=== PATIENT | female | born 1940 | race Caucasian/White ===

== ENCOUNTER → 2016-05-08 | Outpatient (CLI) | payer MEDICARE, OTHER ==
[~2016-05-08] MED LIST: CARB1DRO12 OP; GENT3.5O18 OD; LOPE2CAP PO; MULT-963 PO
--- NOTE | 2016-05-09 13:35 | Diagnostic Imaging Report ---
INDICATION: Digital mammogram bilateral screening. This study was compared to the prior exams of 11/14/14, 09/12/13 and 03/26/12. At this time, there are no current complaints. The current study was also evaluated with a Computer Aided Detection (CAD) system. FINDINGS: There is a mild amount of fibroglandular tissue present in both breasts, similar to the prior exam. No primary or secondary sign of malignancy is noted. IMPRESSION: There is no radiographic evidence for malignancy. ACR BI-RADS Category 1: Negative Result letter will be mailed to the patient. Note: At least 10% of breast cancer is not imaged by mammography. Dictated by: Dictated on workstation # [id number]
== END ==
LOC: RAD 10:13
PROVIDERS: ATTEND Internal Medicine
DX: Z12.31 Encounter for screening mammogram for malignant neoplasm of breast (principal)

== ENCOUNTER → 2017-04-27 | Outpatient (CLI) | payer MEDICARE, OTHER ==
--- NOTE | 2017-04-27 15:50 | Diagnostic Imaging Report ---
INDICATION: Digital mammogram bilateral screening. This study was compared to the prior exams from 05/08/16 to 03/26/12. At this time, there are no current complaints. The current study was also evaluated with a Computer Aided Detection (CAD) system. FINDINGS: There are scattered fibroglandular densities in both breasts which could obscure a lesion. Overall, there does not appear to have been any significant change when compared to the prior exam. No primary or secondary sign of malignancy is noted. IMPRESSION: There is no radiographic evidence for malignancy. ACR BI-RADS Category 1: Negative. Result letter will be mailed to the patient. Note: At least 10% of breast cancer is not imaged by mammography. Dictated by: Dictated on workstation # [id number]
== END ==
LOC: RAD 11:08
PROVIDERS: ATTEND Internal Medicine
DX: Z12.31 Encounter for screening mammogram for malignant neoplasm of breast (principal)
CPT/HCPCS: 77067

== ENCOUNTER 2017-04-29 05:31 | Outpatient (CLI) | payer MEDICARE, OTHER ==
[~2017-04-29] VITALS: Ht 154.9 cm; Wt 50.5 kg
[2017-04-29] MEDS ORDERED: MULT-35 PO (11:04)
[2017-04-29] MEDS ORDERED: LOPE-134 PO (11:04)
== END 2017-04-29 11:08 ==
LOC: PREOP 05:31
PROVIDERS: ATTEND Surgery
DX: Z01.818 Encounter for other preprocedural examination (principal); Z12.11 Encounter for screening for malignant neoplasm of colon; R19.7 Diarrhea, unspecified; Z86.010 Personal history of colon polyps; Z80.0 Family history of malignant neoplasm of digestive organs

== ENCOUNTER 2017-05-06 10:33 | Day surgery (SDC) | payer MEDICARE, OTHER ==
[~2017-05-06] VITALS: Ht 154.9 cm; Wt 50.5 kg
[~2017-05-06 10:33] MED LIST changes: +LOPE-134 PO; +MULT-35 PO
--- NOTE | 2017-05-06 10:44 | Conscious Sedation/ASA ---
Conscious Sedation Pre-Proced Time Reviewed: 10:30 ASA Class: 3 Airway Mallampati Classification: (tetlin appropriate class) I. II. III, IV Lungs Heart ASA score ASA 1: a normal healthy patient ASA 2: a patient with a mild systemic disease (mid diabetes, controlled hypertension, obesity ASA 3: a patient with a severe systemic disease that limits activity (angina , COPD, prior Myocardial infarction) ASA 4: a patient with an incapacitating disease that is a constant threat to life (CHF, renal failure) ASA 5: a moribund patient not expected to survive 24 hrs. (ruptured aneurysm) ASA 6: a declared brain patient whose organs are being harvested. For emergent operations, add the letter E after the classification Grade 2 Sedation Plan: Analgesia, Amnesia, Plan communicated to team members, Discussed options with patient/fam, Discussed risks with patient/fam Note The patient is an appropriate candidate to undergo the planned procedure, sedation, and anesthesia. The patient immediately re-assessed prior to indication. DILLON ZHOU MD May 06, 2017 10:44 am
[2017-05-06] MEDS ORDERED: HYDROcodone/APAP 5 MG/325 MG (LORTAB) TAB PO PRN (10:45)
[2017-05-06] MEDS ORDERED: ONDANSETRON 4 MG/2 ML (SDV) Z0FRAN IV PRN (10:45)
[2017-05-06] MEDS ORDERED: morphine INJ 10 MG/ML 1ML (SYR OR VIAL) IV PRN (10:45)
[2017-05-06] MEDS ORDERED: ACETAMINOPHEN 325 MG TABLET/CAPLET (TYLENOL) PO PRN (10:45)
--- NOTE | 2017-05-06 10:45 | Progress Note-Pre Operative ---
Pre-Operative Progress Note H&P Reviewed The H&P was reviewed, patient examined and no changes noted. Date Seen by Provider: May 06, 2017 Time Seen by Provider: 10:40 Date H&P Reviewed: May 06, 2017 Time H&P Reviewed: 10:30 Pre-Operative Diagnosis: hx polyp, family hx colon ca DILLON ZHOU MD May 06, 2017 10:45 am
[2017-05-06 10:55] VITALS: BP_DIAS 142
[2017-05-06] MEDS ORDERED: NS IV 500 ML 500 ML IV PRN (10:55)
[2017-05-06] MEDS ORDERED: LIDOCAINE JELLY 2% (XYLOCAINE) 5 ML TUBE MM PRN (11:00)
[2017-05-06] MEDS ORDERED: LIDOCAINE JELLY 2% (XYLOCAINE) 5 ML TUBE ONE (11:30)
[2017-05-06] MEDS ORDERED: fentaNYL INJECTION 100 MCG/2 ML AMP ONE ×2 (11:31)
[2017-05-06] MEDS ORDERED: MIDAZOLAM 2 MG/2 ML (VERSED) VIAL ONE ×3 (11:31)
--- NOTE | 2017-05-06 11:32 | Discharge Inst-Surgical ---
D/C Lap Instructions-ABELARDO Follow Up 2 years Activity as tolerated High Fiber Diet 25g or more per day Avoid Alcohol, Caffeine, Spicy [place] and Acid foods. Drink 64 fluid oz or more of fluids per day. Symptoms to Report: Fever over 101 degree F, Nausea/Vomiting If any problems/questions: Contact your physician or go to Emergency Room DILLON ZHOU MD May 06, 2017 11:32 am
[2017-05-06] MEDS: fentaNYL INJECTION 100 MCG/2 ML AMP IVP PRN ×4 (11:40→12:05)
[2017-05-06] MEDS: MIDAZOLAM 2 MG/2 ML (VERSED) VIAL IVP PRN ×3 (11:48→11:55)
[2017-05-06 14:37] VITALS: BP 138/70
[2017-05-06 14:40] VITALS: BP 138/70
--- NOTE | 2017-05-06 18:34 | OPERATIVE REPORT ---
DATE OF SERVICE: 05/06/2017 PREOPERATIVE DIAGNOSES: History of polyps, family history of colon cancer, personal history of ovarian cancer. POSTOPERATIVE DIAGNOSES: Chronic stage I external and internal hemorrhoids, chronic radiation proctitis, mild sigmoid diverticulosis. PROCEDURE: Colonoscopy. SURGEON: Dillon Zhou M.D. ANESTHESIA: Conscious sedation. ESTIMATED BLOOD LOSS: Minimal. FINDINGS: Chronic stage I external and internal hemorrhoids, not actively edematous nor inflamed and no bleeding. A chronic changes within the rectal mucosa consistent with a chronic radiation proctitis with no active bleeding or ulceration. Mild isolated sigmoid diverticulosis with no inflammatory changes. No polyps identified. DISPOSITION: The patient tolerated the procedure well. INDICATIONS: The patient is a 76-year-old female with history of chronic radiation proctitis, which caused her to have significant diarrhea for which she states is for approximately 1 year. This was around 2015 and she was seen at [facility] and underwent a colonoscopy at that time were polyps were identified, biopsied and found to be benign. She states that over time in [place] taking her diarrhea did improve over time. She does not report any episodes of rectal bleeding or dark tarry stools. She has a history of ovarian cancer diagnosed in 1969 and underwent hysterectomy as well as radiation therapy. DESCRIPTION OF PROCEDURE: The patient was brought to the operating room, laid supine on the table. After adequate IV pain and sedative medications and conscious sedation anesthesia, a digital rectal examination was performed. Mild chronic stage I external and internal hemorrhoids were identified, which were not actively edematous nor inflamed and no bleeding. The anus appeared to be somewhat stenotic; however, patent under digital rectal examination. There were no palpable masses. The endoscope was then intubated to the anus and rectum and gently insufflated. The endoscope was then advanced to the valves of Todd of the rectum with a slightly pale appearing rectal mucosa as well as a small amount of mucous material consistent with a chronic radiation proctitis with no bleeding or ulcerations identified. The endoscope was then advanced to the sigmoid colon, where a few small isolated diverticulosis identified. There were no mucosal inflammatory change to indicate any diverticulitis. The endoscope was then advanced to the remainder of the descending, transverse and ascending colon to the cecum, which appeared normal with no polyps or any neoplasms identified. The endoscope was then slowly withdrawn while taking a second look and suctioning residual air with no additional findings. The patient tolerated the procedure well. Our recommendations is that she continue with medical management with a high fiber diet with at least 25 grams of fiber per day as well as at least 64 fluid ounces of water daily to promote soft stools on a daily basis. Due to her high risk with her family history as well as personal history of ovarian cancer, it was recommended that she proceed with followup colonoscopy approximately every 2 years by [facility] and we will have her follow up. Job ID: [id number] DocumentID: [id number] Dictated Date: 05/06/2017 17:55:12 Print Production Coordinator Date: 05/06/2017 18:33:29 Dictated By: DILLON ZHOU MD
== END 2017-05-06 14:00 | disposition home or self-care (01) ==
LOC: ENDO 10:33
PROVIDERS: ATTEND Surgery
DX: K62.7 Radiation proctitis (principal); K64.0 First degree hemorrhoids; K57.30 Diverticulosis of large intestine without perforation or abscess without bleeding; Z86.010 Personal history of colon polyps; Z80.0 Family history of malignant neoplasm of digestive organs; Z85.43 Personal history of malignant neoplasm of ovary; E78.00 Pure hypercholesterolemia, unspecified; M85.80 Other specified disorders of bone density and structure, unspecified site; Z79.899 Other long term (current) drug therapy

== ENCOUNTER → 2017-08-06 | Outpatient (CLI) | payer MEDICARE, OTHER ==
--- NOTE | 2017-08-06 15:46 | Diagnostic Imaging Report ---
PROCEDURE: CT head without contrast. TECHNIQUE: Multiple contiguous axial images were obtained through the brain without the use of intravenous contrast. INDICATION: Syncope and fall. COMPARISON: No prior studies are available for comparison. FINDINGS: The ventricles and sulci are appropriate for the patient's age. No sulcal effacement is identified. There is no midline shift. No acute intra-axial or extra-axial hemorrhage is detected. Cisterns are patent. The visualized paranasal sinuses are clear. IMPRESSION: No acute intracranial process is detected. Dictated by: Dictated on workstation # [id number]
== END ==
LOC: RAD 15:18
PROVIDERS: ATTEND Nurse Practitioner
DX: R55 Syncope and collapse (principal); W22.8XXA Striking against or struck by other objects, initial encounter
CPT/HCPCS: 70450

== ENCOUNTER → 2019-05-12 | Outpatient (CLI) | payer MEDICARE, OTHER ==
--- NOTE | 2019-05-12 11:58 | Diagnostic Imaging Report ---
INDICATION: Left breast pain. Correlation is made with diagnostic mammogram earlier the same day. FINDINGS: Sonographic interrogation of the area of pain in the upper left breast was performed. No sonographic abnormality is identified. No solid or cystic mass is detected. IMPRESSION: No sonographic abnormality is detected. ACR BI-RADS Category 1: Negative. Dictated by: Dictated on workstation # [id number]
--- NOTE | 2019-05-12 11:58 | Diagnostic Imaging Report ---
INDICATION: Left breast pain. Correlation is made with prior mammograms from 04/27/2017 and 05/08/2016. 2-D and 3-D bilateral diagnostic mammography was performed. The current study was also evaluated with a Computer Aided Detection (CAD) system. 3-D tomosynthesis was also performed and reviewed. FINDINGS: Scattered fibroglandular densities are identified bilaterally. A BB marker was placed at the area of pain in the upper left breast. No underlying abnormality is seen. No mass or malignant-appearing microcalcifications are seen. The axillae are unremarkable. IMPRESSION: No mammographic features suspicious for malignancy are identified. Even so, directed sonographic interrogation of the area of pain in the left breast is recommended and will be performed today. ACR BI-RADS Category 0: Incomplete. (Needs additional imaging evaluation). Result letter will be mailed to the patient. Note: At least 10% of breast cancer is not imaged by mammography. Dictated by: Dictated on workstation # [id number]
== END ==
LOC: RAD 08:59
PROVIDERS: ATTEND Internal Medicine
DX: N64.4 Mastodynia (principal)
CPT/HCPCS: 76642; 77066

== ENCOUNTER → 2019-05-31 | Outpatient (CLI) | payer MEDICARE, OTHER ==
--- NOTE | 2019-05-31 11:36 | Diagnostic Imaging Report ---
INDICATION: Postmenopausal screening for osteoporosis. COMPARISON: 03/26/2012. FINDINGS: AP Spine L1-L4: [BMD (g/cm2): 0.845] [T-Score: -3.0] [Z-Score: -0.6] [BMD Previous: 0.964] [BMD % Change: -12.3] LT Hip Neck: [BMD (g/cm2): 0.813] [T-Score: -1.6] [Z-Score: 0.8] LT Hip Total: [BMD (g/cm2):0.821] [T-Score:-1.5] [Z-Score: 0.8] [BMD Previous: 0.886] [BMD % Change: -7.3] RT Hip Neck: [BMD (g/cm2):0.761] [T-Score:-2.0] [Z-Score:0.4] RT Hip Total: [BMD (g/cm2):0.807] [T-score:-1.6] [Z-Score:0.7] [BMD Previous:0.860] [BMD % Change:-6.2] *Indicates significant change from prior examination based on 95% confidence level. World Health Organization criteria for BMD interpretation classify patients as Normal (T-score at or above -1.0), Osteopenic (T-score between -1.0 and -2.5) or Osteoporotic (T-score at or below -2.5). LIMITATIONS AND MODIFICATION: None. FRACTURE RISK (FRAX SCORE): The ten year probability of (%): Major Osteoporotic Fracture: [13.3] Hip Fracture: [4.0] IMPRESSION: 1. Osteopenia (Low bone mass). 2. No significant change in bone mineral density since prior examination. 3. See below National Osteoporosis Foundation guidelines on when to potentially initiate pharmacologic therapy. Based on the National Osteoporosis Foundation Guidelines, pharmacologic treatment should be initiated in any of the following, unless clinical conditions suggest otherwise: * Any patient with prior fragility fracture of the hip or vertebrae. A spine fracture indicates 5X risk for subsequent spine fracture and 2X risk for subsequent hip fracture. * Osteoporosis (T-score <-2.5). * Postmenopausal women and men age 50 and older with low bone mass/osteopenia (T-score between -1.0 and -2.5) by DXA and 10-year major osteoporotic fracture greater than 20% or a 10-year probability of hip fracture greater than 3%. These fracture risks are supplied above in the FRAX score, if applicable. * Clinician judgement and/or patient preferences may indicate treatment for people with 10-year fracture probabilities above or below these levels. Dictated by: Dictated on workstation # [id number]
== END ==
LOC: RAD 10:07
PROVIDERS: ATTEND Internal Medicine
DX: M85.80 Other specified disorders of bone density and structure, unspecified site (principal); Z78.0 Asymptomatic menopausal state
CPT/HCPCS: 77080

== ENCOUNTER 2020-01-20 18:44 | Emergency (ER) | payer MEDICARE, OTHER ==
--- NOTE | 2020-01-20 19:01 | NUR ---
Went to call pt to back. Registration stated pt's son entered waiting room and was yelling at pt that there are too many sick people here and made pt leave.
== END 2020-01-20 19:08 | disposition left against medical advice (07) ==
LOC: EDUNIT# 18:44 → ER 18:46
DX: R33.9 Retention of urine, unspecified (principal)

== ENCOUNTER 2020-02-08 10:48 | Outpatient (RCR) | payer MEDICARE, OTHER | END 2020-02-08 11:27 | disposition home or self-care (01) | PROVIDERS: ATTEND Physician Assistant | DX: R35.0 Frequency of micturition (principal); R35.1 Nocturia ==

== ENCOUNTER → 2020-09-05 | Outpatient (CLI) | payer MEDICARE, OTHER ==
--- NOTE | 2020-09-05 13:52 | Diagnostic Imaging Report ---
INDICATION: Routine screening. COMPARISON: 05/12/2019 and 04/27/2017. TECHNIQUE: 2D and 3D bilateral screening mammography was performed with CAD. FINDINGS: Scattered fibroglandular densities are identified bilaterally. No mass or malignant appearing microcalcifications are seen. The axillae are unremarkable. IMPRESSION: No mammographic features suspicious for malignancy are identified. ACR BI-RADS Category 1: Negative. Result letter will be mailed to the patient. Note: At least 10% of breast cancer is not imaged by mammography. Dictated by: Dictated on workstation # [id number]
== END ==
LOC: RAD 09:57
PROVIDERS: ATTEND Internal Medicine
DX: Z12.31 Encounter for screening mammogram for malignant neoplasm of breast (principal)
CPT/HCPCS: 77063; 77067

== ENCOUNTER 2020-09-12 11:52 | Outpatient (CLI) | payer MEDICARE, OTHER ==
[~2020-09-12] VITALS: Ht 154.9 cm; Wt 49.9 kg
[2020-09-12] MEDS ORDERED: TURM500C4 PO (15:53)
[2020-09-12] MEDS ORDERED: MULT-593 PO (15:53)
[2020-09-12] MEDS ORDERED: ERGO50006 PO (15:53)
[2020-09-12] MEDS ORDERED: GLUC-182 PO (15:53)
== END 2020-09-13 08:44 | disposition home or self-care (01) ==
LOC: PREOP 11:52
PROVIDERS: ATTEND Surgery
DX: Z01.818 Encounter for other preprocedural examination (principal)

== ENCOUNTER 2020-09-19 11:11 | Day surgery (SDC) | payer MEDICARE, OTHER ==
[2020-09-19] VITALS (29 sets, daily range): BP systolic 99–161; BP diastolic 55–83
[~2020-09-19] VITALS: Ht 154.9 cm; Wt 49.9 kg
[~2020-09-19 11:11] MED LIST changes: +ERGO50006 PO; +GLUC-182 PO; +MULT-593 PO; +NS IV 500 ML 500 ML ONE; +TURM500C4 PO
[2020-09-19] MEDS ORDERED: fentaNYL INJ 100 MCG/2 ML AMP IVP ONE (11:15)
[2020-09-19] MEDS ORDERED: MIDAZOLAM 5 MG/5 ML (VERSED) VIAL IV ONE (11:15)
[2020-09-19] MEDS ORDERED: LIDOCAINE JELLY 2% 6 ML SYRINGE MM PRN (11:15)
[2020-09-19] MEDS ORDERED: NS IV 500 ML 500 ML IV PRN (11:15)
[2020-09-19] MEDS ORDERED: MIDAZOLAM 5 MG/5 ML (VERSED) VIAL ONE ×2 (11:39)
[2020-09-19] MEDS ORDERED: LIDOCAINE JELLY 2% 6 ML SYRINGE ONE (11:39)
[2020-09-19] MEDS ORDERED: fentaNYL INJ 100 MCG/2 ML AMP ONE ×2 (11:39→11:40)
--- NOTE | 2020-09-19 11:43 | Conscious Sedation/ASA ---
Conscious Sedation Pre-Proced Time 11:30 ASA Score 2 For ASA 3 and 4: Consider anesthesia and medical clearance. Also, for patients with a history of failed moderate sedation consider anesthesia. Airway Lungs Heart ASA score ASA 1: a normal healthy patient ASA 2: a patient with a mild systemic disease (mid diabetes, controlled hypertension, obesity ASA 3: a patient with a severe systemic disease that limits activity (angina, COPD, prior Myocardial infarction) ASA 4: a patient with an incapacitating disease that is a constant threat to life (CHF, renal failure) ASA 5: a moribund patient not expected to survive 24 hrs. (ruptured aneurysm) ASA 6: a declared brain- patient whose organs are being harvested. For emergent operations, add the letter E after the classification Mallampati Classification Grade 2 Sedation Plan Analgesia, Amnesia, Plan communicated to team members, Discussed options with patient/fam, Discussed risks with patient/fam The patient is an appropriate candidate to undergo the planned procedure, sedation, and anesthesia. The patient immediately re-assessed prior to indication. DILLON ZHOU MD Sep 19, 2020 11:43
--- NOTE | 2020-09-19 11:44 | Progress Note-Pre Operative ---
Pre-Operative Progress Note H&P Reviewed The H&P was reviewed, patient examined and no changes noted. Date Seen by Provider: Sep 19, 2020 Time Seen by Provider: 11:30 Date H&P Reviewed: Sep 19, 2020 Time H&P Reviewed: 11:30 Pre-Operative Diagnosis: hx polyp, family hx colon ca DILLON ZHOU MD Sep 19, 2020 11:44
[2020-09-19] MEDS ORDERED: HYDROcodone/APAP 5 MG/325 MG (LORTAB) TAB PO PRN (11:45)
[2020-09-19] MEDS ORDERED: morphine INJ 10 MG/ML 1ML (SYR OR VIAL) IVP PRN ×2 (11:45)
[2020-09-19] MEDS ORDERED: ACETAMINOPHEN 325 MG TABLET PO PRN (11:45)
[2020-09-19] MEDS ORDERED: ONDANSETRON 4 MG/2 ML (SDV) Z0FRAN IVP PRN (11:45)
--- NOTE | 2020-09-19 11:45 | Discharge Inst-Surgical ---
D/C Lap Instructions-ABELARDO Follow Up Appt in 2 weeks Activity as tolerated High Fiber Diet 25g or more per day Avoid Alcohol, Caffeine, Spicy [place] and Acid foods. Drink 64 fluid oz or more of fluids per day. Symptoms to Report: Fever over 101 degree F, Nausea/Vomiting If any problems/questions: Contact your physician or go to Emergency Room DILLON ZHOU MD Sep 19, 2020 11:45
--- NOTE | 2020-09-19 13:42 | Progress Note-Post Operative ---
Post-Operative Progess Note Surgeon (s)/Machine Shop Lead Man (s) Surgeon DILLON ZHOU MD Machine Shop Lead Man: none Pre-Operative Diagnosis hx polyp, family hx colon ca Post-Operative Diagnosis anal stenosis, chronic radiation proctitis, moderate sigmoid diverticulosis, sigmoid polyp(3mm). Procedure & Operative Findings Date of Procedure 09/19/20 Procedure Performed/Findings colonoscopy with snare polypectomy. Anesthesia Type cs Estimated Blood Loss Estimated blood loss (mL): minimal Specimens/Packing Specimens Removed sigmoid polyp DILLON ZHOU MD Sep 19, 2020 13:42
--- NOTE | 2020-09-19 19:30 | OPERATIVE REPORT ---
DATE OF SERVICE: 09/19/2020 ATTENDING PRIMARY CARE PHYSICIAN: Dr. Diogo Nagel. PREOPERATIVE DIAGNOSIS: Screening colonoscopy with a history of colon polyps as well as a family history of colon cancer. POSTOPERATIVE DIAGNOSES: Mild to moderate anal stenosis, chronic radiation proctitis, moderate sigmoid diverticulosis, sigmoid colon polyp approximately 3 mm in size. PROCEDURE: Colonoscopy with snare polypectomy. SURGEON: Dillon Zhou MD. ANESTHESIA: Conscious sedation. ESTIMATED BLOOD LOSS: Minimal. FINDINGS: Mild to moderate anal stenosis, chronic radiation proctitis, moderate sigmoid diverticulosis, sigmoid colon polyp approximately 3 mm in size. DISPOSITION: The patient tolerated the procedure well. INDICATIONS: The patient is a 79-year-old female known to us. We had done a colonoscopy on her in 2012 and found to have sigmoid diverticulosis as well as a polyp of the sigmoid colon, which was removed and found to be a benign tubular adenoma. She also does have a history of cervical cancer and underwent a complete hysterectomy in 1973 and this was followed by radiation treatment. She also does have a family history of colon cancer with her father being diagnosed with the disease at age 67 as well as a paternal grandfather. She also has a known history of radiation proctitis and does report occasional episodes of blood per rectum. DESCRIPTION OF PROCEDURE: The patient was brought to the endoscopy suite, laid in the left lateral decubitus position. After adequate IV pain and sedative medications and conscious sedation anesthesia, digital rectal examination was performed. Chronic stage II external and internal hemorrhoids were identified, which were not actively edematous nor inflamed and no bleeding. The patient also was felt to have a moderate anal stenosis, likely secondary to radiation. The endoscope was then intubated and anus and rectum gently insufflated. The endoscope was then advanced through the valves of Todd of the rectum where there was a chronic radiation proctitis identified with easy friability. The endoscope was then advanced through sigmoid colon, which was tortuous with moderate sigmoid diverticulosis was also identified. A pedunculated polyp approximately 3 mm in size was identified. This was removed by snare and electrocautery with visualization of good hemostasis. The endoscope was then advanced and remainder of the descending, transverse and ascending colon to the cecum. These segments appeared normal. The endoscope was then slowly withdrawn while taking a second look and suctioning of residual air with no additional findings. The patient tolerated the procedure well. We will recommend continued medical management with a high fiber diet with at least 25 grams of fiber daily as well as significant amounts of water to promote soft stools on a daily basis. If she is asymptomatic, she does not need another colonoscopy for another 5 years; however, if she does have worsening issues with inability to defecate due to worsening anal stenosis, she may need a dilatation under anesthesia or potentially a rectal advancement flap. Job ID: [id number] DocumentID: [id number] Dictated Date: 09/19/2020 13:31:57 Bobbin Dumper Date: 09/19/2020 19:29:40 Dictated By: DILLON ZHOU MD
== END 2020-09-19 14:25 | disposition home or self-care (01) ==
LOC: ENDO 11:11
PROVIDERS: ATTEND Surgery
DX: D12.5 Benign neoplasm of sigmoid colon (principal); K62.4 Stenosis of anus and rectum; K62.7 Radiation proctitis; K57.30 Diverticulosis of large intestine without perforation or abscess without bleeding; M85.80 Other specified disorders of bone density and structure, unspecified site; E78.00 Pure hypercholesterolemia, unspecified; Z80.0 Family history of malignant neoplasm of digestive organs; Z79.899 Other long term (current) drug therapy; Z85.41 Personal history of malignant neoplasm of cervix uteri

== ENCOUNTER → 2021-10-10 | Outpatient (CLI) | payer MEDICARE, OTHER ==
[~2021-10-10] MED LIST changes: +ERGO1250 PO; -ERGO50006 PO; -NS IV 500 ML 500 ML ONE
--- NOTE | 2021-10-10 15:19 | Diagnostic Imaging Report ---
Indication: Left shoulder injury and pain. Time of Exam: 2:38 PM 3 views of the left shoulder were obtained. Glenohumeral and acromioclavicular alignment are normal. There does appear to be some narrowing of the acromiohumeral space suggestive of rotator cuff arthropathy. No fracture or dislocation is detected. IMPRESSION: Changes of chronic rotator cuff arthropathy. No acute bony abnormality is detected. Dictated by: Dictated on workstation # [id number]
== END ==
LOC: RAD 14:10
PROVIDERS: ATTEND Physician Assistant
DX: M19.012 Primary osteoarthritis, left shoulder (principal)
CPT/HCPCS: 73030

== ENCOUNTER → 2021-10-15 | Outpatient (CLI) | payer MEDICARE, OTHER ==
--- NOTE | 2021-10-15 12:33 | Diagnostic Imaging Report ---
INDICATION: Postmenopausal screening COMPARISON: 05/31/2019 FINDINGS: AP Spine L1-L4: [BMD (g/cm2): 0.933] [T-Score: -2.2] [Z-Score: 0.1] [BMD Previous: 0.845] [BMD % Change: 10.4] LT Hip Neck: [BMD (g/cm2): 0.786] [T-Score: -1.8] [Z-Score: 0.7] LT Hip Total: [BMD (g/cm2):0.826] [T-Score:-1.4] [Z-Score: 0.9] [BMD Previous: 0.821] [BMD % Change: 0.6] RT Hip Neck: [BMD (g/cm2):0.753] [T-Score:-2.0] [Z-Score:0.4] RT Hip Total: [BMD (g/cm2):0.797] [T-score:-1.7] [Z-Score:0.7] [BMD Previous:0.807] [BMD % Change:-1.2] *Indicates significant change from prior examination based on 95% confidence level. World Health Organization criteria for BMD interpretation classify patients as Normal (T-score at or above -1.0), Osteopenic (T-score between -1.0 and -2.5) or Osteoporotic (T-score at or below -2.5). LIMITATIONS AND MODIFICATION: None. FRACTURE RISK (FRAX SCORE): The ten year probability of (%): Major Osteoporotic Fracture: [14.6] Hip Fracture: [4.7] IMPRESSION: 1. Osteopenia (Low bone mass). 2. mild interval improvement 3. See below National Osteoporosis Foundation guidelines on when to potentially initiate pharmacologic therapy. Based on the National Osteoporosis Foundation Guidelines, pharmacologic treatment should be initiated in any of the following, unless clinical conditions suggest otherwise: * Any patient with prior fragility fracture of the hip or vertebrae. A spine fracture indicates 5X risk for subsequent spine fracture and 2X risk for subsequent hip fracture. * Osteoporosis (T-score <-2.5). * Postmenopausal women and men age 50 and older with low bone mass/osteopenia (T-score between -1.0 and -2.5) by DXA and 10-year major osteoporotic fracture greater than 20% or a 10-year probability of hip fracture greater than 3%. These fracture risks are supplied above in the FRAX score, if applicable. * Clinician judgement and/or patient preferences may indicate treatment for people with 10-year fracture probabilities above or below these levels. Dictated by: Dictated on workstation # [id number]
== END ==
LOC: RAD 10:22
PROVIDERS: ATTEND Physician Assistant
DX: Z13.820 Encounter for screening for osteoporosis (principal); M85.88 Other specified disorders of bone density and structure, other site; Z78.0 Asymptomatic menopausal state
CPT/HCPCS: 77080

== ENCOUNTER 2021-11-06 14:49 | Outpatient (RCR) | payer MEDICARE, OTHER | END 2021-11-10 | disposition home or self-care (01) | PROVIDERS: ATTEND Physician Assistant | DX: M19.012 Primary osteoarthritis, left shoulder (principal) ==

== ENCOUNTER → 2021-12-11 | Outpatient (RCR) | payer MEDICARE, OTHER | END | disposition home or self-care (01) | PROVIDERS: ATTEND Physician Assistant | DX: M19.012 Primary osteoarthritis, left shoulder (principal) ==